=== PATIENT | male | born 2000 | race Native Hawaiian/Other Pacific Islander ===

== ENCOUNTER 2021-11-17 21:41 | Emergency (ER) | payer OTHER ==
[2021-11-17 21:59] VITALS: BP 123/73; PULSE 95; RESP 18; TEMP 99.2
[2021-11-17] MEDS ORDERED: IBUPROFEN 800 MG TAB PO STA (22:14)
[2021-11-17] MEDS ORDERED: ACETAMINOPHEN TAB 500 MG TAB PO STA (22:14)
--- NOTE | 2021-11-17 22:14 | ED ---
Back Pain HPI - General Chief Complaint: Back Pain/Injury Stated Complaint: Skiing Accident,Back Injury Time Seen by Provider: 11/17/21 22:13 Source: patient, RN notes reviewed, old records reviewed Limitations: no limitations - History of Present Illness Initial Comments: This is a 21-year-old male to the ER for evaluation. Patient was snowboarding ground at that time patient had another skier back into his back with her skis. Patient states the pain began significantly strong is persistent not worsened since no shortness of breath and no other injuries or complaints MD Complaint: back pain, back injury -: hour(s) Similar Symptoms Previously: No Place: street Radiation: none Severity: severe Severity scale (1-10): 8 Quality: sharp Consistency: constant Improves With: none Worsens With: none Context: trauma Associated Symptoms: denies other symptoms Treatments Prior to Arrival: acetaminophen - Related Data Home Medications Medication Instructions Recorded Confirmed No Known Home Medications 10/15/16 11/17/21 Allergies Allergy/AdvReac Type Severity Reaction Status Date / Time No Known Allergies Allergy Verified 10/15/16 19:13 Review of Systems ROS Statement: Those systems with pertinent positive or pertinent negative responses have been documented in the HPI. ROS Other: All systems not noted in ROS Statement are negative. Past Medical History Past Medical History: No Reported History History of Any Multi-Drug Resistant Organisms: None Reported Past Surgical History: No Surgical Hx Reported Past Psychological History: No Psychological Hx Reported Smoking Status: Never smoker Past Alcohol Use History: Rare Past Drug Use History: Marijuana General Exam Limitations: no limitations General appearance: alert, in no apparent distress Head exam: Present: atraumatic, normocephalic, normal inspection Eye exam: Present: normal appearance, PERRL, EOMI. Absent: scleral icterus, conjunctival injection, periorbital swelling ENT exam: Present: normal exam, mucous membranes moist Neck exam: Present: normal inspection. Absent: tenderness, meningismus, lymphadenopathy Respiratory exam: Present: normal lung sounds bilaterally. Absent: respiratory distress, wheezes, rales, rhonchi, stridor Cardiovascular Exam: Present: regular rate, normal rhythm, normal heart sounds. Absent: systolic murmur, diastolic murmur, rubs, gallop, clicks GI/Abdominal exam: Present: soft, normal bowel sounds. Absent: distended, tenderness, guarding, rebound, rigid Extremities exam: Present: normal inspection, full ROM, normal capillary refill. Absent: tenderness, pedal edema, joint swelling, calf tenderness Back exam: Present: normal inspection Neurological exam: Present: alert, oriented X3, CN II-XII intact Psychiatric exam: Present: normal affect, normal mood Skin exam: Present: warm, dry, intact, normal color. Absent: rash Course Vital Signs 11/17/21 21:53 Temperature 99.2 F Pulse Rate 95 Respiratory 18 Rate Blood Pressure 123/73 O2 Sat by Pulse 98 Oximetry - Reevaluation(s) Reevaluation #1: 11/18/21 Medical record is reviewed Reevaluation #2: 11/18/21 Patient symptoms are improved Reevaluation #3: 11/18/21 Patient family informed results and questions answered Medical Decision Making - Medical Decision Making 21 male to the emergency department for evaluation of back pain severe back pain . Patient's back pain is improved here in the ER no findings the patient can be discharged home Disposition Clinical Impression: Thoracic back pain Disposition: HOME SELF-CARE Condition: Good Instructions (If sedation given, give patient instructions): Back Pain (ED) Is patient prescribed a controlled substance at d/c from ED?: No Referrals: None,Stated [Primary Care Provider] - 1-2 days
[2021-11-17] MEDS ORDERED: ACETAMINOPHEN TAB 325 MG TAB PO STA (22:18)
[2021-11-17] MEDS ORDERED: KETOROLAC 15 MG/ML 1 ML VIAL IM STA (22:18)
[2021-11-17] MEDS ORDERED: Acetaminophen-Codeine 300-30mg TAB PO STA (22:18)
--- NOTE | 2021-11-17 22:47 | XR ---
EXAMINATION TYPE: XR chest 2V DATE OF EXAM: 11/17/2021 COMPARISON: NONE HISTORY: Chest pain TECHNIQUE: FINDINGS: Heart and mediastinum are normal. Lungs are clear. Diaphragm is normal. Bony thorax appears normal. IMPRESSION: Normal chest.
--- NOTE | 2021-11-17 22:48 | XR ---
EXAMINATION TYPE: XR thoracic spine 2V DATE OF EXAM: 11/17/2021 COMPARISON: NONE HISTORY: Back pain TECHNIQUE: 3 views FINDINGS: Thoracic vertebra have normal alignment. There is no compression fracture. Posterior elemen ts are intact. Disc spaces appear normal. There is no evidence of thoracic paraspinal mass. IMPRESSION: Normal thoracic spine. No fracture seen.
[2021-11-17] MEDS ORDERED: ACET/COD 300 MG/30 MG STARTER PACK 6 TAB BTL PO STA (23:15)
[2021-11-17] MEDS ORDERED: IBUPROFEN 600 MG STARTER PACK 4 TAB BTL PO STA (23:15)
== END 2021-11-17 23:39 | disposition home or self-care (01) ==
LOC: EC 21:41
DX: M54.6 Pain in thoracic spine (principal); F12.90 Cannabis use, unspecified, uncomplicated
CPT/HCPCS: 99283; 96372; 72070; 71046; J1885